=== PATIENT | female | born 1950 | race Caucasian/White ===

== ENCOUNTER 2022-03-05 17:00 | Inpatient (IN) | payer MEDICARE, MEDICAID ==
[~2022-03-05] VITALS: Ht 165.1 cm; Wt 63.6 kg
[2022-03-05 21:40] LABS: MEAN CORPUSCULAR HEMOGLOBIN 29.3 pg (28.0-32.0); MEAN CORPUSCULAR VOLUME 82.7 fL (81.0-99.0); RED BLOOD CELL COUNT 2.01 mill/uL (4.2-5.4); RED CELL DISTRIBUTION WIDTH 13.7 % (11.6-14.6)
[2022-03-05 21:49] LABS: CLARITY URINE CLOUDY (CLEAR); COLOR URINE DARK YELLOW (YELLOW); KETONES URINE NEGATIVE (NEGATIVE); LEUKOCYTE ESTERASE URINE NEGATIVE (NEGATIVE); NITRITE URINE NEGATIVE (NEGATIVE); OCCULT BLOOD URINE NEGATIVE (NEGATIVE); PH URINE 5.5 (4.5-8.0); PROTEIN URINE 1+ (NEGATIVE); SPECIFIC GRAVITY URINE 1.013 (1.005-1.030)
[2022-03-05 21:51] LABS: CHLORIDE 90 mEq/L (98-107)
[2022-03-05 22:04] LABS: HEMOGLOBIN. 5.9 g/dL (12.0-16.0)
[2022-03-05 22:05] LABS: HEMATOCRIT. 16.6 % (36.0-48.0); PLATELET 15 x1000/uL (130-400)
[2022-03-05 22:37] LABS: PLATELET ESTIMATE MARKEDLY DECREASED
[2022-03-05] MEDS ORDERED: CEFTRIAXONE 1 G PREMIX 50 ML IV ONE (23:30)
[2022-03-06] VITALS (50 sets, daily range): BP systolic 90–140; BP diastolic 38–79
[2022-03-06] MEDS ORDERED: NOREPINEPHRINE 8MG/250ML PMX 250 ML IV ONE (00:45)
[2022-03-06] MEDS: VANCOMYCIN 1G PREMIX 200 ML IV SCH (00:48)
[2022-03-06] MEDS ORDERED: IPRATROPIUM/ALBUTEROL 0.5-3(2.5)MG/3ML NEB HHN PRN (09:30)
[2022-03-06] MEDS ORDERED: ONDANSETRON HCL 4MG/2ML INJ IV PRN (09:30)
[2022-03-06] MEDS ORDERED: POTASSIUM CHLORIDE INJ 40 MEQ in DEXT 5% WATER 250 ML IV ONE (09:30)
[2022-03-06] MEDS ORDERED: CLONIDINE 0.1MG TABLET PO PRN (09:30)
[2022-03-06] MEDS ORDERED: DIPHENHYDRAMINE 50MG/ML VIAL IV PRN (09:30)
[2022-03-06] MEDS: KCL 20MEQ/100ML X 2 FOR TOTAL KCL 40MEQ/200ML IV SCH ×2 (10:59→11:09)
[2022-03-06] MEDS: SODIUM CHLORIDE 0.9% 1,000 ML IV SCH (11:00)
[2022-03-06] MEDS: CEFTRIAXONE 1,000 MG in DEXTROSE 5% WATER 50 ML IV SCH (11:09)
[2022-03-06 13:01] LABS: HEMATOCRIT. 24.5 % (36.0-48.0); HEMOGLOBIN. 8.8 g/dL (12.0-16.0); MEAN CORPUSCULAR HEMOGLOBIN 29.3 pg (28.0-32.0); MEAN PLATELET VOLUME 7.6 fl (7.4-10.4); RED BLOOD CELL COUNT 2.99 mill/uL (4.2-5.4); RED CELL DISTRIBUTION WIDTH 14.6 % (11.6-14.6)
[2022-03-06 13:21] LABS: PLATELET 10 x1000/uL (130-400)
[2022-03-06 18:34] LABS: PLATELET ESTIMATE MARKEDLY DECREASED
[2022-03-06 20:05] LABS: HEMOGLOBIN. 8.1 g/dL (12.0-16.0); MEAN CORPUSCULAR HEMOGLOBIN 29.3 pg (28.0-32.0); MEAN PLATELET VOLUME 7.9 fl (7.4-10.4); RED BLOOD CELL COUNT 2.77 mill/uL (4.2-5.4); RED CELL DISTRIBUTION WIDTH 14.7 % (11.6-14.6)
[2022-03-06 20:16] LABS: PLATELET 21 x1000/uL (130-400)
[2022-03-06 21:52] LABS: PLATELET ESTIMATE MARKEDL
[2022-03-07] VITALS (73 sets, daily range): BP systolic 92–142; BP diastolic 19–81
[2022-03-07] MEDS: VANCOMYCIN 1G PREMIX 200 ML IV SCH (00:24)
[2022-03-07] MEDS: SODIUM CHLORIDE 0.9% 1,000 ML IV SCH ×2 (05:10→21:43)
[2022-03-07 07:07] LABS: HEMATOCRIT. 22.1 % (36.0-48.0); HEMOGLOBIN. 7.8 g/dL (12.0-16.0); MEAN CORPUSCULAR HEMOGLOBIN 29.2 pg (28.0-32.0); MEAN CORPUSCULAR VOLUME 82.5 fL (81.0-99.0); MEAN PLATELET VOLUME 8.5 fl (7.4-10.4); RED BLOOD CELL COUNT 2.68 mill/uL (4.2-5.4)
[2022-03-07 07:22] LABS: PLATELET 16 x1000/uL (130-400)
[2022-03-07 09:14] LABS: PLATELET ESTIMATE MARKEDLY DECREASED
[2022-03-07 09:21] LABS: CHLORIDE 94 mEq/L (98-107)
[2022-03-07] MEDS ORDERED: POTASSIUM CHLORIDE 20MEQ/PACKET PO NR (11:30)
[2022-03-07] MEDS: CEFTRIAXONE 1,000 MG in DEXTROSE 5% WATER 50 ML IV SCH (21:43)
[2022-03-08] VITALS (61 sets, daily range): BP systolic 83–154; BP diastolic 39–90
[2022-03-08 07:26] LABS: HEMOGLOBIN. 7.8 g/dL (12.0-16.0); MEAN CORPUSCULAR HEMOGLOBIN 29.6 pg (28.0-32.0); MEAN CORPUSCULAR VOLUME 83.2 fL (81.0-99.0); MEAN PLATELET VOLUME 8.4 fl (7.4-10.4); RED BLOOD CELL COUNT 2.64 mill/uL (4.2-5.4); RED CELL DISTRIBUTION WIDTH 14.5 % (11.6-14.6)
[2022-03-08 07:31] LABS: CHLORIDE 95 mEq/L (98-107)
[2022-03-08] MEDS ORDERED: POTASSIUM CHLORIDE 20MEQ/PACKET PO SCH (08:45)
[2022-03-08] MEDS: SODIUM CHLORIDE 0.9% 1,000 ML IV SCH (12:33)
[2022-03-08 16:53] LABS: PLATELET ESTIMATE MARKEDLY DECREASED
[2022-03-08 16:54] LABS: PLATELET 11 x1000/uL (130-400)
[2022-03-08] MEDS: CEFTRIAXONE 1,000 MG in DEXTROSE 5% WATER 50 ML IV SCH (21:28)
[2022-03-09] VITALS (73 sets, daily range): BP systolic 95–152; BP diastolic 33–88
[2022-03-09] MEDS: SODIUM CHLORIDE 0.9% 1,000 ML IV SCH ×2 (05:38→22:25)
[2022-03-09 05:52] LABS: HEMATOCRIT. 24.3 % (36.0-48.0); HEMOGLOBIN. 8.3 g/dL (12.0-16.0); MEAN CORPUSCULAR HEMOGLOBIN 29.1 pg (28.0-32.0); MEAN PLATELET VOLUME 8.9 fl (7.4-10.4); RED BLOOD CELL COUNT 2.85 mill/uL (4.2-5.4); RED CELL DISTRIBUTION WIDTH 14.3 % (11.6-14.6)
[2022-03-09 05:58] LABS: CHLORIDE 98 mEq/L (98-107)
[2022-03-09 11:19] LABS: PLATELET 9 x1000/uL (130-400); PLATELET ESTIMATE MARKEDLY DECREASED
[2022-03-09] MEDS: CEFTRIAXONE 1,000 MG in DEXTROSE 5% WATER 50 ML IV SCH (21:15)
[2022-03-10] VITALS (37 sets, daily range): BP systolic 94–139; BP diastolic 37–82
[2022-03-10 05:42] LABS: HEMATOCRIT. 21.5 % (36.0-48.0); HEMOGLOBIN. 7.6 g/dL (12.0-16.0); MEAN CORPUSCULAR HEMOGLOBIN 29.6 pg (28.0-32.0); MEAN CORPUSCULAR VOLUME 84.1 fL (81.0-99.0); MEAN PLATELET VOLUME 7.8 fl (7.4-10.4); RED BLOOD CELL COUNT 2.55 mill/uL (4.2-5.4)
[2022-03-10 05:56] LABS: CHLORIDE 98 mEq/L (98-107)
[2022-03-10 06:37] LABS: PLATELET 42 x1000/uL (130-400)
[2022-03-10] MEDS ORDERED: DEXTROSE 50% WATER 50ML SYRINGE IV PRN (08:00)
[2022-03-10] MEDS: INSULIN LISPRO 100 UNITS/ML SUBCUT SCH ×4 (08:20→21:00)
[2022-03-10] MEDS: BLOOD SUGAR DIAGNOSTIC STRIP TEST SCH ×3 (11:34→21:00)
[2022-03-10 14:00] LABS: PLATELET ESTIMATE MARKEDLY DECREASED
[2022-03-10] MEDS: SODIUM CHLORIDE 0.9% 1,000 ML IV SCH (15:24)
[2022-03-10] MEDS: ACETAMINOPHEN 325MG TABLET PO PRN (22:34)
[2022-03-10] MEDS: CEFTRIAXONE 1,000 MG in DEXTROSE 5% WATER 50 ML IV SCH (22:34)
[2022-03-11] VITALS (12 sets, daily range): BP systolic 94–128; BP diastolic 43–69
[2022-03-11] MEDS: SODIUM CHLORIDE 0.9% 1,000 ML IV SCH ×2 (05:25→23:17)
[2022-03-11] MEDS: ACETAMINOPHEN 325MG TABLET PO PRN ×2 (05:25→21:02)
[2022-03-11 07:09] LABS: HEMATOCRIT. 22.3 % (36.0-48.0); HEMOGLOBIN. 7.7 g/dL (12.0-16.0); MEAN CORPUSCULAR HEMOGLOBIN 29.3 pg (28.0-32.0); MEAN CORPUSCULAR VOLUME 84.9 fL (81.0-99.0); MEAN PLATELET VOLUME 8.3 fl (7.4-10.4); RED BLOOD CELL COUNT 2.63 mill/uL (4.2-5.4); RED CELL DISTRIBUTION WIDTH 13.9 % (11.6-14.6)
[2022-03-11 07:35] LABS: CHLORIDE 97 mEq/L (98-107)
[2022-03-11] MEDS: BLOOD SUGAR DIAGNOSTIC STRIP TEST SCH ×4 (07:38→21:04)
[2022-03-11] MEDS: INSULIN LISPRO 100 UNITS/ML SUBCUT SCH ×4 (07:38→21:00)
[2022-03-11 08:46] LABS: PLATELET 24 x1000/uL (130-400)
[2022-03-11 16:55] LABS: INR 1.3; PROTHROMBIN TIME 13.8 sec (9.6-11.0)
[2022-03-11] MEDS: CEFTRIAXONE 1,000 MG in DEXTROSE 5% WATER 50 ML IV SCH (21:04)
[2022-03-12] VITALS (77 sets, daily range): BP systolic 56–163; BP diastolic 19–117
[2022-03-12] MEDS: ACETAMINOPHEN 325MG TABLET PO PRN (03:48)
[2022-03-12 07:17] LABS: MEAN CORPUSCULAR HEMOGLOBIN 30.3 pg (28.0-32.0); MEAN CORPUSCULAR VOLUME 84.8 fL (81.0-99.0); MEAN PLATELET VOLUME 8.5 fl (7.4-10.4); RED BLOOD CELL COUNT 2.02 mill/uL (4.2-5.4)
[2022-03-12] MEDS ORDERED: SODIUM CHLORIDE 0.9% 1000ML BAG (SEPSIS BOLUS) IV ONE (07:30)
[2022-03-12] MEDS: BLOOD SUGAR DIAGNOSTIC STRIP TEST SCH ×3 (07:30→17:24)
[2022-03-12 07:46] LABS: HEMATOCRIT. 17.1 % (36.0-48.0); HEMOGLOBIN. 6.1 g/dL (12.0-16.0); PLATELET 9 x1000/uL (130-400)
[2022-03-12] MEDS: INSULIN LISPRO 100 UNITS/ML SUBCUT SCH ×3 (08:00→17:24)
[2022-03-12] MEDS: NOREPINEPHRINE 8 MG in DEXT 5% WATER 242 ML IV PRN ×2 (09:03→13:40)
[2022-03-12 09:06] LABS: BG BASE EXCESS -6.9 mmol/L (-2.0-2.0); BG DEOXYHEMOGLOBIN 2.3 % (0.0-5.0); BG FRACTION INSPIRED OXYGEN 32; BG HCO3 ACT 15.9 mmol/L (22.0-26.0); BG METHEMOGLOBIN 0.3 % (0.0-1.5); BG OXYGEN SATURATION 97.7 % (92.0-98.5); BG OXYHEMOGLOBIN 97.4 % (94.0-97.0); BG PCO2 21.6 mmHg (35.0-45.0); BG PH 7.485 (7.350-7.450); BG PO2 102.4 mmHg (75.0-100.0); BG SAMPLE SITE RIGHT BRACHIAL; BG TOTAL HEMOGLOBIN 6.1 g/dL (12.0-18.0); BG VENT MODE NASAL CANNULA
[2022-03-12] MEDS ORDERED: VANCOMYCIN 1.25GM PMX (XELLIA) 250 ML IV NR (09:30)
[2022-03-12] MEDS ORDERED: PIPERACILLIN/TAZOBACTAM 3.375 G in DEXTROSE 5% WATER 50 ML IV SCH (10:00)
[2022-03-12 10:52] LABS: PLATELET ESTIMATE MARKEDLY DECREASED
[2022-03-12] MEDS ORDERED: CEFEPIME 2,000 MG in DEXT 5% WATER 100 ML IV SCH (14:00)
[2022-03-12] MEDS ORDERED: PHENYLEPHRINE 100 MG in DEXT 5% WATER 240 ML IV PRN (14:15)
[2022-03-12] MEDS ORDERED: SODIUM CHLORIDE 0.9% 250 ML IV ONE (15:45)
[2022-03-12] MEDS: MIDODRINE HCL 5MG TABLET PO SCH ×2 (15:53→18:40)
[2022-03-12] MEDS: SODIUM CHLORIDE 0.9% 1,000 ML IV SCH (15:55)
[2022-03-12] MEDS ORDERED: NALOXONE HCL 0.4MG/ML VIAL IV PRN (17:15)
[2022-03-12] MEDS ORDERED: HYDROCODONE/ACETAMINOPHEN 5/325MG TABLET PO PRN (17:15)
[2022-03-12 20:38] LABS: INR 2.1; PROTHROMBIN TIME 21.4 sec (9.6-11.0)
[2022-03-12 22:38] LABS: PLATELET ESTIMATE MARKEDLY DECREASED
[2022-03-13] MEDS ORDERED: VANCOMYCIN 1G PREMIX 200 ML IV SCH
[2022-03-13 09:46] LABS: CHLORIDE 99 mEq/L (98-107)
== END 2022-03-12 20:28 | DRG 871 ==
LOC: ER 17:00 → CVICU 23:43 → EDBD 23:43 → EDBEDREQ 23:48 → EDBEDREQSVC 03-06 02:55 → EDBEDREQTM 03-06 02:55 → 5EST 03-10 13:03 → CVICU 03-12 08:40
PROVIDERS: ADMIT Internal Medicine; ATTEND Internal Medicine
PROC: 30233R1 Transfusion of Nonautologous Platelets into Peripheral Vein, Percutaneous Approach (ICD-10-PCS; 2022-03-05)
PROC: 30233N1 Transfusion of Nonautologous Red Blood Cells into Peripheral Vein, Percutaneous Approach (ICD-10-PCS; 2022-03-06)
PROC: 0BH17EZ Insertion of Endotracheal Airway into Trachea, Via Natural or Artificial Opening (ICD-10-PCS; principal; 2022-03-12)
PROC: 5A12012 Performance of Cardiac Output, Single, Manual (ICD-10-PCS; 2022-03-12)
PROC: 5A2204Z Restoration of Cardiac Rhythm, Single (ICD-10-PCS; 2022-03-12)
DX: A41.9 Sepsis, unspecified organism (principal); D61.810 Antineoplastic chemotherapy induced pancytopenia; R65.21 Severe sepsis with septic shock; C92.00 Acute myeloblastic leukemia, not having achieved remission; I50.22 Chronic systolic (congestive) heart failure; E22.2 Syndrome of inappropriate secretion of antidiuretic hormone; D75.89 Other specified diseases of blood and blood-forming organs; E11.9 Type 2 diabetes mellitus without complications; D69.6 Thrombocytopenia, unspecified; I11.0 Hypertensive heart disease with heart failure; E78.00 Pure hypercholesterolemia, unspecified; T45.1X5A Adverse effect of antineoplastic and immunosuppressive drugs, initial encounter; I46.9 Cardiac arrest, cause unspecified; D70.9 Neutropenia, unspecified; Z82.49 Family history of ischemic heart disease and other diseases of the circulatory system; Y92.89 Other specified places as the place of occurrence of the external cause
CPT/HCPCS: 36415; 36600; 71045; 80048; 80053; 81003; 82375; 82533; 82805; 82962; 83036; 83605; 83880; 83935; 84145; 84300; 84443; 84484; 85014; 85018; 85025; 85049; 85384; 86850; 86900; 86920; 87077; 87186; 93005; 93306; 93970; 97162; 99291; J0692; J0696; J2405; J2543; J3370; J3480; J3490; J7030; J7060; P9016; P9034